=== PATIENT | female | born 1990 | race Asian ===

== ENCOUNTER → 2023-01-29 | Outpatient (CLI) | payer OTHER ==
[2023-01-29 09:36] LABS: HEMOGLOBIN A1C 5.5 % (3.8-5.6)
[2023-01-29 09:48] LABS: ALANINE AMINOTRANSFERASE 27 U/L (12-78); ALBUMIN 3.6 g/dL (3.4-5.0); ALKALINE PHOSPHATASE 59 U/L (46-116); ANION GAP 4 mmol/L (8-16); ASPARTATE AMINOTRANSFERASE 13 U/L (15-37); BILIRUBIN,TOTAL 0.3 mg/dL (0.1-1.0); CALCIUM, TOTAL 8.8 mg/dL (8.8-10.5); CARBON DIOXIDE 29 mmol/L (22-29); CHLORIDE 102 mmol/L (98-107); CHOL/HDL RATIO 2.9 (3.9-5.7); CHOLESTEROL 164 mg/dL (131-200); CREATININE 0.68 mg/dL (0.60-1.30); GLOMERULAR FILTR. RATE CALC > 60 mL/min (>60); GLUCOSE,RANDOM 98 mg/dL (70-110); HDL CHOLESTEROL 57 mg/dL (40-60); LDL CHOL (CALC.) 95 mg/dL (0-130); POTASSIUM 3.8 mmol/L (3.5-5.1); SODIUM SERUM 135 mmol/L (136-145); TOTAL PROTEIN, SERUM 7.9 g/dL (6.4-8.2); TRIGLYCERIDES 62 mg/dL (15-150); UREA NITROGEN, BLOOD 13 mg/dL (7-18)
[2023-01-29 10:12] LABS: VITAMIN B12 LEVEL 1292 pg/mL (211-911); VITAMIN D,TOTAL (25-0H) 30 ng/mL (30-100)
[2023-01-30 13:06] LABS: CREATININE, URINE (mALB) 132.2 mg/dL (Not Estab.)
== END | disposition home or self-care (01) ==
LOC: LABMN 08:55
PROVIDERS: ATTEND Internal Medicine Geriatric Medicine
DX: Z00.00 Encounter for general adult medical examination without abnormal findings (principal)
CPT/HCPCS: 80053; 80061; 82043; 82306; 82570; 82607; 82746; 83036; 84443

== ENCOUNTER 2023-12-19 13:47 | Emergency (ER) | payer OTHER ==
[~2023-12-19] VITALS: Ht 144.8 cm; Wt 77.3 kg
[2023-12-19 13:52] VITALS: TEMP 99.3
[2023-12-19] MEDS ORDERED: IBUP-45 PO (13:54)
[2023-12-19] MEDS: TraMADol HCL 50 MG TABLET PO ONE (15:27)
[2023-12-19] MEDS: KETOROLAC TROMETHAMINE 30 MG/ML VIAL IM ONE (15:27)
[2023-12-19] MEDS ORDERED: TRAM50TA5 PO (16:47)
[2023-12-19 16:53] VITALS: BP 120/68; PULSE 86; RESP 16; O2SAT 99
== END 2023-12-19 16:55 | disposition home or self-care (01) ==
LOC: EMS 13:47
DX: M70.71 Other bursitis of hip, right hip (principal); M25.551 Pain in right hip; Y93.89 Activity, other specified
CPT/HCPCS: 99284; 84703; 36415; 73502; 96372; J1885

== ENCOUNTER → 2024-04-17 | Outpatient (CLI) | payer OTHER ==
[~2024-04-17] MED LIST: IBUP-45 PO; TRAM50TA5 PO
== END | disposition home or self-care (01) ==
LOC: RADMN 07:49
PROVIDERS: ATTEND Internal Medicine
DX: Z20.1 Contact with and (suspected) exposure to tuberculosis (principal); Z86.11 Personal history of tuberculosis
CPT/HCPCS: 71045